=== PATIENT | female | born 1940 | race Caucasian/White ===

== ENCOUNTER → 2021-02-07 | Outpatient (CLI) | payer BC, MEDICARE | LOC: HEART 5 08:46 | DX: J44.9 Chronic obstructive pulmonary disease, unspecified (principal); R06.02 Shortness of breath; F17.210 Nicotine dependence, cigarettes, uncomplicated | CPT/HCPCS: 94060; 94729 ==

== ENCOUNTER → 2021-03-18 | Outpatient (CLI) | payer BC, MEDICARE | LOC: HEART CORB 02-25 09:00 | DX: I73.9 Peripheral vascular disease, unspecified (principal); I10 Essential (primary) hypertension; R06.02 Shortness of breath; I08.1 Rheumatic disorders of both mitral and tricuspid valves | CPT/HCPCS: 93306 ==

== ENCOUNTER → 2021-08-26 | Outpatient (CLI) | payer BC, MEDICARE ==
[~2021-08-26] VITALS: Ht 152.4 cm; Wt 42.2 kg
== END ==
LOC: OPSV 07:38
DX: M81.0 Age-related osteoporosis without current pathological fracture (principal)
CPT/HCPCS: 96365; J3489

== ENCOUNTER → 2022-01-07 | Outpatient (CLI) | payer BC, MEDICARE | LOC: KOH-I 08:20 | DX: I71.4 Abdominal aortic aneurysm, without rupture (principal); R10.13 Epigastric pain; M54.2 Cervicalgia; R11.0 Nausea; N13.30 Unspecified hydronephrosis; N28.9 Disorder of kidney and ureter, unspecified | CPT/HCPCS: 76700 ==

== ENCOUNTER → 2022-02-03 | Outpatient (CLI) | payer BC, MEDICARE | LOC: KOH-I 01-31 08:30 | DX: I71.4 Abdominal aortic aneurysm, without rupture (principal); N13.30 Unspecified hydronephrosis; R91.1 Solitary pulmonary nodule | CPT/HCPCS: 74176 ==